=== PATIENT | male | born 1940 | race Caucasian/White ===

== ENCOUNTER 2017-04-24 08:34 | Emergency (ER) | payer OTHER, MEDICAID ==
[~2017-04-24] VITALS: Ht 167.6 cm; Wt 68.9 kg
--- NOTE | 2017-04-24 08:34 | NUR ---
PT TO BED 11 BY EMS.
[2017-04-24 08:36] VITALS: BP 126/73
--- NOTE | 2017-04-24 08:36 | NUR ---
77M BIBA FROM [facility] C/O DIFFICULTY BREATHING X THIS MORNING. PT SPITTING OUT YELLOW PHLEGM;PER [facility] THEY DON'T HAVE A PULSE SATURATION;TOOK O2 SAT IN ER ;O2 SAT FLUCTUATING FROM 87% TO 97% THEN DROPS AGAIN TO 84%;START NON REBREATHER MASK;O2 SAT WENT UO TO 95%;PT AWAKE BUT NOT ANSWERING ANY QUESTION;HX OF ESRD, HTN, DM, ANXIETY .DENIES N/V/D; SKIN IS PINK/WARM/DRY; PATIENT POSITIONED FOR COMFORT; HOB ELEVATED; BEDRAILS UP X2; BED DOWN.ALL MONITORS IN PLACED;ER MD MADE AWARE OF PT STATUS.
--- NOTE | 2017-04-24 09:00 | NUR ---
RECEIVED PATIENT PATIENT IN ER FROM [facility]. PATIENT WAS ON NON-REBREATHER AND ALTERED MENTAL STATUS. PATIENT DID NOT RESPOND TO COMMANDS AND DID NOT RESPOND TO ORAL SUCTION NO GAG REFLEX. PATIENT SATURATION WAS UNCLEAR AND HEART RATE WAS LOW. RESP RATE WAS VERY MINIMAL AND DIFFICULT TO DETERMINE. UPON ASSESSMENT BREATH SOUNDS WERE SHALLOW AND AIR WAS DID NOT SEEM TO BE MOVING ON INSP/EXP. ER DOCTOR PRESENT AND NURSING STAFF. NO HEART RATE WAS OBSERVED AND CODE BLUE STARTED SHORTLY AFTER. RT DID AMBU BAG PATIENT AND ER DOCTOR SUCCESSFULLY INTUBATED PATIENT. PATIENT PLACED ON VENTILATOR FOR A SHORT PERIOD OF TIME UNTIL CODE BLUE WAS CALLED AND CPR WAS CONDUCTED. RT DID COMPRESSIONS AND OTHER RT DID AMBU BAG. CPR WAS UNSUCCESSFUL AND CPR WAS TERMINATED AFTER APROX ONE HOUR. PATIENT IN ER SEE NURSING AND DR NOTES FOR TIME.
[2017-04-24] MEDS ORDERED: NACL 0.9% 1,000 ML IV ONE (09:05)
--- NOTE | 2017-04-24 09:05 | NUR ---
PT WAS INTUBATED BY DR GARCIA AT AROUND 0902;
[2017-04-24] MEDS ORDERED: SODIUM BICARBONATE 4.2% 5 MEQ/10 ML SYR IV ONE (09:15)
--- NOTE | 2017-04-24 09:21 | NUR ---
CALLED PHARMACY REGARDING SODIUM BICARBONATE OF PT;SPOKE TO PHARMACIST STEVIE MED IS IV PUSH.AND IT IS PEDIATRIC DOSE.
--- NOTE | 2017-04-24 09:25 | NUR ---
CODE DAMARI VEGAP AND DAMARI DARNELLP ATTENDING
--- NOTE | 2017-04-24 09:30 | NUR ---
CODE STARTED AT AROUND 929; SEE CODE SHEET;
--- NOTE | 2017-04-24 09:30 | NUR ---
IO WAS STARTED AT 0930 AT RT NIETO BY ER DIRECTOR;
--- NOTE | 2017-04-24 09:53 | NUR ---
200 ML NS WAS CONSUMED; END TIME OF NS 1L AT AROUND 0953;
--- NOTE | 2017-04-24 09:53 | NUR ---
TIME OF AT 0953-- PRONOUNCED BY DR GARCIA.
--- NOTE | 2017-04-24 10:35 | NUR ---
CALLED [facility] REGARDING PT;SPOKE TO RN ;STATES THEY DIDN'T START THE DIALYSIS BECAUSE PT WANT TO GO TO HOSPITAL;PER SHE ONLY RECIEVED RE[PORT FROM OUTGOING NURSE THAT PT WANTS TO GO TO HOSPITAL;PT COMPLAIN OF SOB;NO O2 SAT WAS OBTAINED;PT WAS PUT TO 2 LPM VIA NC AT THEIR FACILITY.
--- NOTE | 2017-04-24 10:39 | NUR ---
CALLED [facility];INFORMED THEM THEY NEED TO COME HERE IN ER ;MS SUGGS WILL COME HERE IN ER.
--- NOTE | 2017-04-24 10:54 | NUR ---
SPOKE WITH KEANU; STATES A REDUCING SYSTEM OPERATOR WILL CALL WITH A CASE NUMBER.
--- NOTE | 2017-04-24 11:32 | NUR ---
DAUGHTER OF PT IN TRIAGE. TECHNICAL DIRECTOR CALLED TO PROVIDE A CONFERENCE ROOM FOR THE FAMILY.
--- NOTE | 2017-04-24 11:53 | NUR ---
SPOKE WITH PT'S ATTENDING PHYSICIAN DR. ANUJ RUANO.
--- NOTE | 2017-04-24 12:06 | NUR ---
SPOKE WITH CHRIS AT [facility]; CHRIS STATES PER THE INFORMATION PROVIDED ON THE PATIENT, THE PAITENT IS NOT ELIGIBLE FOR ORGAN DONATION, AND [facility] HAS RELEASED THE BODY; CASE # [id number]
--- NOTE | 2017-04-24 12:23 | NUR ---
SPOKE WITH [employer]; PER INFORMATION GIVEN, [employer] IS RELEASING PT'S BODY AT 1231 TODAY; .
--- NOTE | 2017-04-24 14:00 | NUR ---
PT MOVED TO M/S 118 FOR OVERFLOW.
--- NOTE | 2017-04-24 16:54 | NUR ---
SPOKE WITH FAMILY. FAMILY STATES WORKING ON PICKING A MORTUARY AT THIS TIME.
--- NOTE | 2017-04-24 17:46 | NUR ---
SPOKE WITH FAMILY; PER FAMILY, [facility] 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
--- NOTE | 2017-04-24 20:40 | NUR ---
Patient Tranfers to outside Facility Location: [facility]
== END 2017-04-24 14:00 | disposition expired ==
LOC: MED 08:34
DX: I46.9 Cardiac arrest, cause unspecified (principal); I12.0 Hypertensive chronic kidney disease with stage 5 chronic kidney disease or end stage renal disease; N18.6 End stage renal disease; Z99.2 Dependence on renal dialysis
CPT/HCPCS: 31500; 71010; 92950; 93005; 96360; 96361; 99291; J7030; Q0092